=== PATIENT | male | born 1945 | race Caucasian/White ===

== ENCOUNTER 2023-07-07 10:47 | Day surgery (SDC) | payer OTHER ==
[2023-07-07] VITALS (25 sets, daily range): BP systolic 100–151; BP diastolic 59–83
[~2023-07-07] VITALS: Ht 167.6 cm; Wt 84.9 kg
[~2023-07-07 10:47] MED LIST: ASPI81CH PO; FINA5 PO; LIDO700A20 TOP; LISI20 PO; MULVITA PO; NORVASC2.5 MG PO; OMEP20ER PO; TAMS.4ER PO
--- NOTE | 2023-07-07 18:45 | NUR ---
PLS RESTING IN BED. TRAY DELIVERED FOR DINNER. CALL LIGHT WITHIN REACH.
[2023-07-07 20:11] LABS: Bun/Creatinine Ratio 15.4 (12.0-20.0); Calcium, Blood 8.4 mg/dL (8.5-10.1); Creatinine, Blood 0.98 mg/dL (0.60-1.20); Magnesium, Blood 1.9 mg/dL (1.6-2.4); Potassium, Blood 3.9 mmol/L (3.5-5.5); Thyroid Stimulating Hormone 1.81 uIU/mL (0.360-4.800)
--- NOTE | 2023-07-07 22:54 | NUR ---
PT ARRIVED TO UNIT FROM PCU AT APROX 2200. INCISION SITE TO R HIP W/PRINEO DRESSING C/D/I. PT HAD NOT VOIDED POST STRAIGHT CATH IN PACU, BLADDER SCAN SHOWED 875. PT AMBULATED TO BATHROOM W/GAIT BELT/FWW MIN ASSIST. VOIDED 550 PINK URINE WITH SMALL CLOT. WILL REASSESS IN 3 HRS IF PT IS UNABLE TO VOID AGAIN AT THAT TIME WILL BLADDER SCAN. PT DENIES PAIN AT THIS TIME. TELE IN PLACE, PT SINUS JUANITO 58.
[2023-07-08 00:13] VITALS: BP 129/76
--- NOTE | 2023-07-08 03:28 | NUR ---
SHIFT SUMMARY PT POD 1 R BOY. DRESSING TO R HIP C/D/I. AMBULATED 1 MIN ASSSIST USING FWW TO BATHROOM. REPORTS PAIN IS TOLERABLE WITH SCHEDULED PAIN MEDICATION. TOLERATING REGULAR DIET WITH NO N/V. TELE IN PLACE, SINUS JUANITO IN 50'S SINCE ARRIVAL TO FLOOR. PLAN TO WORK WITH PT TODAY AND DC HOME IF CLEARED.
[2023-07-08 05:31] VITALS: BP 151/71
[2023-07-08 06:20] LABS: BASOPHILS ABSOLUTE AUTO 0.03 K/mm3 (0.00-0.23); BASOPHILS PERCENT AUTO 0 % (0-2); EOSINOPHILS ABSOLUTE AUTO 0.02 K/mm3 (0.00-0.68); EOSINOPHILS PERCENT AUTO 0 % (0-6); Hemoglobin 14.8 g/dL (13.5-17.5); IMMATURE GRAN ABSOLUTE AUTO 0.03 K/mm3 (0.00-0.10); IMMATURE GRAN PERCENT AUTO 0 % (0-1); LYMPHOCYTES ABSOLUTE AUTO 0.65 K/mm3 (0.84-5.20); LYMPHOCYTES PERCENT AUTO 6 % (21-46); MONOCYTES ABSOLUTE AUTO 0.89 K/mm3 (0.16-1.47); MONOCYTES PERCENT AUTO 8 % (4-13); Mean Corpuscular HGB 30.2 pg (26.0-34.0); Mean Corpuscular HGB Conc 34.4 g/dL (31.5-36.5); Mean Corpuscular Volume 88 fL (80-100); Mean Platelet Volume 10.6 fL (9.1-12.4); NEUTROPHILS ABSOLUTE AUTO 10.17 K/mm3 (1.96-9.15); NEUTROPHILS PERCENT AUTO 86 % (41-73); Platelet Count 160 K/mm3 (150-400); RDW Coefficient Variation 13.2 % (11.7-14.2); RDW Standard Deviation 42.7 fL (35.1-46.3); White Blood Cell Count 11.79 K/mm3 (4.00-11.30)
[2023-07-08 06:39] LABS: Calcium, Blood 8.9 mg/dL (8.5-10.1); Creatinine, Blood 0.94 mg/dL (0.60-1.20); Potassium, Blood 3.9 mmol/L (3.5-5.5)
[2023-07-08 07:14] VITALS: BP 142/72
[2023-07-08] MEDS ORDERED: ACET500 PO (11:42)
[2023-07-08] MEDS ORDERED: OXYC5 PO (11:43)
--- NOTE | 2023-07-08 12:07 | NUR ---
DISCHARGE PT HAS CLEARED THERAPY. PAIN WELL CONTROLLED w/ NO NARCOTICS. EATING, DRINKING, & VOIDING WELL. DISCUSSED CASE w/ DR TSE PRIOR TO DC & CLEARED OK FOR DC. POLAR PACK SENT w/ PT. ESCORTED OUT VIA W/C.
== END 2023-07-08 12:12 | disposition home or self-care (01) ==
LOC: ORSCMMR 10:47 → ORD 13:30 → ORSCMMR 13:30 → ORD 14:00 → PCU 17:30 → SURS 21:45 → ORSCMMR 21:46
PROVIDERS: Hospitalist; Orthopaedic Surgery
PROC: 0SR90JA Replacement of Right Hip Joint with Synthetic Substitute, Uncemented, Open Approach (ICD-10-PCS; principal; 2023-07-07 13:30)
DX: M16.11 Unilateral primary osteoarthritis, right hip (principal); J44.9 Chronic obstructive pulmonary disease, unspecified; I10 Essential (primary) hypertension; Z85.51 Personal history of malignant neoplasm of bladder; Z79.899 Other long term (current) drug therapy
CPT/HCPCS: 36415; 72170; 80048; 83735; 84443; 85025; 93005; 93010; 97110; 97116; 97161; A9270; C1776; J0171; J0690; J0735; J1885; J2371; J2704; J2795; J3010; J7120